=== PATIENT | female | born 2000 | race Asian ===

== ENCOUNTER 2020-04-17 03:15 | Inpatient (IN) | payer MEDICAID, OTHER ==
[2020-04-17] MEDS: Lactated Ringer's 1,000 ML IV SCH ×2 (04:00→17:30)
[2020-04-17] MEDS ORDERED: Ibuprofen 800 MG TAB PO PRN (04:25)
[2020-04-17] MEDS ORDERED: Lidocaine 1% (PF) 30 ML VIAL SC PRN (04:25)
[2020-04-17] MEDS ORDERED: Ondansetron PF 4 MG/2 ML Vial IVP PRN ×2 (04:25→17:31)
[2020-04-17] MEDS ORDERED: hydrALAZINE 20 MG/ML VIAL SLOW IVP PRN ×2 (04:25→17:31)
[2020-04-17] MEDS ORDERED: NS / Oxytocin 40 units/1000ml 1,000 ML IV PRN (04:25)
[2020-04-17] MEDS ORDERED: HYDROcodone/Acetaminophen 5/325 mg Tablet PO PRN ×3 (04:25→17:31)
[2020-04-17 04:31] VITALS: BMI 27.3
[2020-04-17 04:31] LABS: Amnisure Test No Membranes Rupture (No Rupture)
[2020-04-17 04:32] LABS: Amnisure Internal Control QC ACCEPTABLE (ACCEPTABLE)
[2020-04-17] MEDS ORDERED: Acetaminophen 500 MG TAB PO PRN (04:32)
[2020-04-17] MEDS ORDERED: NS w/ Oxytocin 10 units 500 ML IV SCH (04:45)
[2020-04-17] MEDS: Ampicillin 2 GM in Sodium Chloride 0.9% 100 ML IVPB SCH ×3 (05:14→19:04)
[2020-04-17] MEDS ORDERED: Butorphanol Tartrate 1 MG/ML VIAL ONE (05:41)
[2020-04-17 05:44] LABS: Hemoglobin 13.6 g/dL (12.0-16.0); Mean Corpuscular HGB CONC 33.5 g/dL (32.0-36.0); Mean Corpuscular Hemoglobin 31.6 pg (25.0-35.0); Mean Corpuscular Volume 94.5 fL (78.0-98.0); Mean Platelet Volume 9.2 fL (7.4-10.4); Platelet Count 252 thou/uL (130-400); White Blood Cell (WBC) Count 15.1 thou/uL (4.8-10.8)
[2020-04-17] MEDS: Butorphanol Tartrate 1 MG/ML VIAL SLOW IVP PRN ×2 (05:53→10:06)
--- NOTE | 2020-04-17 05:55 | HP ---
PRIMARY OB: Luiz Forde MD CHIEF COMPLAINT: Abdominal pains. HISTORY OF PRESENT ILLNESS: The patient is a 19-year-old G1, P0 female with an intrauterine at 38 weeks and 6 days, presenting to Labor and Delivery with uterine contractions that she reports began about 6 o'clock yesterday afternoon. Contractions become quite painful and is here for evaluation. The patient reports some spotting for the last four or five days. She also reports two days ago, she had an episode of leaking a large amount of fluid that was running down her legs, but believed it was urine. She denies continued leaking since that point, except does state that now she is having stronger contractions, that she is having a little bit of leaking. She denies fever. She denies cough. She denies headache, chest pain, shortness of breath. She denies sick contacts. She denies nausea, vomiting, diarrhea, constipation, hip problems, knee problems, muscle weakness, urinary urgency or frequency. PAST MEDICAL HISTORY: Negative. PAST SURGICAL HISTORY: Negative. ALLERGIES: NO KNOWN DRUG ALLERGIES. MEDICATIONS: vitamins. SOCIAL HISTORY: Denies drug, alcohol, or tobacco use. PHYSICAL EXAMINATION: VITAL SIGNS: Blood pressure is 133/88, heart rate of 81, respiratory rate of 18, and temperature 100.2 orally. GENERAL: She appears to be in no acute distress, though when she has contractions, they do visibly appear painful. She is alert, oriented, cooperative, and pleasant to interact with. LUNGS: Clear to auscultation bilaterally. HEART: Has a regular rate and rhythm. ABDOMEN: Gravid, soft, nontender. EXTREMITIES: Nontender and nonedematous. VAGINAL: Perineum is visibly wet at time of evaluation. There are no lesions or erythema. On speculum exam, she has pulling and quite a bit of mucus at the os. The fluid does not look purulent at this time and does not have an odor. CERVICAL: Per nursing staff, she is 2.5 cm dilated, 75% effaced, -2 station. heart tracing shows the fetus with a baseline in the 150s with moderate long-term variability, positive 15 x 15 accelerations. She is also having prolonged accelerations into the 190s to 200s. Tocometer showing contractions about every 2 to 3 minutes. AmniSure swab test is negative for rupture. COVID test is pending. Bedside ultrasound was performed and mom was vertex and also oligohydramnios with an SHAE of 3. ASSESSMENT AND PLAN: The patient is a 19-year-old female G1, P0, with an intrauterine at 38 weeks and 6 days with pulling present on physical exam with a history of what sounds to be rupture of membranes for the last 2 days with her initial large gush of fluid two days ago with fever and tachycardia into the 190s to 200s. The patient likely is developing chorioamnionitis and oligohydramnios with prolonged rupture of membranes. We will be starting her on gentamicin and ampicillin, Tylenol and Pitocin for augmentation. She is under investigation for Coronavirus-19 and will be placed under appropriate precautions until that result is back. Her primary provider, Dr. Forde will be updated and will be assuming care. Job ID: [id number]
[2020-04-17 06:23] LABS: Syphilis Antibody Nonreactive (Nonreactive); Syphilis Antibody Index 0.04 S/CO (<1.00 Non-Reactive)
[2020-04-17 06:24] LABS: HBSAg Index 0.09 S/CO (0-0.99); Hep B Surf Ag Non-Reactive S/CO (NonReactive)
[2020-04-17] MEDS: Gentamicin Sulfate 260 MG in Sodium Chloride 0.9% 100 ML IVPB SCH (07:13)
[2020-04-17] MEDS ORDERED: Bupivacaine 0.25% HCL 30 ML VIAL ONE (08:33)
[2020-04-17] MEDS ORDERED: Fentanyl 4 mcg/Bup 0.1% Cadd 100 ML ONE (08:37)
[2020-04-17 14:31] LABS: SARS-CoV-2 MS2 Positive; SARS-CoV-2 N Gene Negative; SARS-CoV-2 S Gene Negative; SARS-CoV-2 by NAA Not Detected (NotDetected); SARS-CoV-2 orf1ab Negative
[2020-04-17] MEDS ORDERED: NS / Oxytocin 40 units/1000ml 1,000 ML ONE (15:08)
[2020-04-17] MEDS ORDERED: Lidocaine 1% (PF) 30 ML VIAL ONE (15:08)
[2020-04-17] MEDS ORDERED: Preparation H Ointment 28 GM TUBE PR PRN (17:31)
[2020-04-17] MEDS ORDERED: Adacel (T-DAP) 0.5 ML SYRINGE IM ONE (17:31)
[2020-04-17] MEDS ORDERED: Milk Of Magnesia 30 ML UDCUP PO PRN (17:31)
[2020-04-17] MEDS ORDERED: diphenhydrAMINE 25 MG CAP PO PRN (17:31)
[2020-04-17] MEDS ORDERED: Benzocaine-Menthol 82.5 ML CAN TOP PRN (17:31)
[2020-04-17] MEDS ORDERED: NS / Oxytocin 40 units/1000ml 1,000 ML IV SCH (17:31)
[2020-04-17] MEDS ORDERED: Bisacodyl 10 MG SUPP PR PRN (17:31)
[2020-04-17] MEDS: Docusate Calcium (SURFAK) 240 MG CAP PO SCH (21:50)
[2020-04-17] MEDS: Ibuprofen 800 MG TAB PO SCH (21:50)
[2020-04-18] MEDS: Ampicillin 2 GM in Sodium Chloride 0.9% 100 ML IVPB SCH ×5 (00:45→21:43)
[2020-04-18] MEDS: Gentamicin Sulfate 260 MG in Sodium Chloride 0.9% 100 ML IVPB SCH (05:24)
[2020-04-18] MEDS: Ibuprofen 800 MG TAB PO SCH ×3 (05:28→21:40)
[2020-04-18 05:38] LABS: Hemoglobin 11.5 g/dL (12.0-16.0); Mean Corpuscular HGB CONC 31.8 g/dL (32.0-36.0); Mean Corpuscular Hemoglobin 30.2 pg (25.0-35.0); Mean Corpuscular Volume 94.8 fL (78.0-98.0); Mean Platelet Volume 8.7 fL (7.4-10.4); Platelet Count 201 thou/uL (130-400); RBC Distribution Width 12.2 % (11.5-14.5); Red Blood Cell (RBC) Count 3.81 mill/uL (4.00-5.20)
[2020-04-18] MEDS: Ferrous Sulfate 325 MG TAB PO SCH ×2 (08:56→17:16)
[2020-04-18] MEDS: Docusate Calcium (SURFAK) 240 MG CAP PO SCH ×2 (08:56→21:40)
[2020-04-18] MEDS: Prenatal Vitamin 1 TAB PO SCH (08:56)
[2020-04-19] MEDS: Ampicillin 2 GM in Sodium Chloride 0.9% 100 ML IVPB SCH ×2 (04:20→12:26)
[2020-04-19] MEDS: Gentamicin Sulfate 260 MG in Sodium Chloride 0.9% 100 ML IVPB SCH (05:26)
[2020-04-19] MEDS: Ibuprofen 800 MG TAB PO SCH ×2 (05:28→14:47)
[2020-04-19] MEDS: Docusate Calcium (SURFAK) 240 MG CAP PO SCH (08:44)
[2020-04-19] MEDS: Prenatal Vitamin 1 TAB PO SCH (08:44)
[2020-04-19] MEDS: Ferrous Sulfate 325 MG TAB PO SCH (08:45)
[2020-04-19 09:04] VITALS: BP 111/76; TEMP 98.5
[2020-04-19] MEDS ORDERED: Sodium Chloride 0.9% 10 ML ONE (12:22)
== END 2020-04-19 16:30 | disposition home or self-care (01) | DRG 805 ==
LOC: L&D/OP 03:15 → L&D 08:00 → 3SW 18:59
PROVIDERS: ADMIT Family Medicine; ATTEND Family Medicine
PROC: 10E0XZZ Delivery of Products of Conception, External Approach (ICD-10-PCS; principal; 2020-04-17)
PROC: 0HQ9XZZ Repair Perineum Skin, External Approach (ICD-10-PCS; 2020-04-17)
DX: O63.9 Long labor, unspecified (principal); O41.1230 Chorioamnionitis, third trimester, not applicable or unspecified; Z37.0 Single live birth; O41.03X0 Oligohydramnios, third trimester, not applicable or unspecified; Z3A.38 38 weeks gestation of pregnancy; Z20.828 Contact with and (suspected) exposure to other viral communicable diseases; O70.0 First degree perineal laceration during delivery
CPT/HCPCS: 36415; 51702; 84112; 85027; 86780; 86850; 86900; 86901; 87340; 87635; 88307; 99285; J0290; J0595; J1580; J2001; J3490; S0020; U0003